=== PATIENT | male | born 1985 | race Hispanic/Latino ===

== ENCOUNTER 2018-01-13 10:22 | Day surgery (SDC) | payer BC ==
[2018-01-10 15:06] VITALS: BMI 48.8
[2018-01-13] MEDS ORDERED: Lidocaine 1% PF 5 ML VIAL ONE (12:14)
[2018-01-13] MEDS ORDERED: PROPOFOL 200 MG/20 ML VIAL ONE (12:14)
--- NOTE | 2018-01-13 12:19 | OP ---
DATE OF PROCEDURE: 01/13/2018 PROCEDURE: Esophagogastroduodenoscopy with biopsy. PREOPERATIVE DIAGNOSIS: Epigastric pain. OPERATIVE NOTE: Informed consent was obtained from the patient. He was sedated with total intraveno us anesthesia. The bite block was placed and the endoscope was advanced easily to the second portion of the duodenum and retroflexion was performed in the stomach. The esophagus was normal. The GE ju nction was normal. The stomach was normal including retroflexed views. The pylorus and first and se cond portions of the duodenum were normal. Multiple biopsies were taken from the duodenum to rule ou t celiac disease. IMPRESSION: Normal esophagogastroduodenoscopy. Duodenal biopsies taken to rule out celiac disease. RECOMMENDATIONS: 1. Await histopathology. 2. Follow up in [facility] Clinic in 1 week.
== END 2018-01-13 12:38 | disposition home or self-care (01) ==
LOC: SDC 10:22
PROVIDERS: ATTEND Internal Medicine Gastroenterology
PROC: 0DB98ZX Excision of Duodenum, Via Natural or Artificial Opening Endoscopic, Diagnostic (ICD-10-PCS; principal; 2018-01-13)
DX: D72.820 Lymphocytosis (symptomatic) (principal); Z79.899 Other long term (current) drug therapy
CPT/HCPCS: 83630; 87045; 87046; 87324; 87328; 87329; 87449; 87899; 88305; J2001; J2704